=== PATIENT | female | born 1940 ===

== ENCOUNTER 2017-10-12 13:00 | Outpatient (RCR) | payer OTHER, MEDICAID ==
[~2017-10-12 13:00] MED LIST: AMBIEN5 MG PO; BENAZEPRIL HCL10 MG PO; DOCUSATE SODIU100 MG PO; SIMVASTATIN40 MG PO
== END 2017-10-15 | disposition home or self-care (01) ==
LOC: PTY 13:00
DX: Z96.642 Presence of left artificial hip joint (principal); Z96.653 Presence of artificial knee joint, bilateral
CPT/HCPCS: 97110; 97140; 97162; G0283

== ENCOUNTER 2017-11-06 13:00 | Outpatient (RCR) | payer OTHER, MEDICAID | END 2017-11-15 | disposition home or self-care (01) | LOC: PTY 13:00 | DX: Z96.642 Presence of left artificial hip joint (principal) | CPT/HCPCS: 97110; G0283 ==

== ENCOUNTER 2017-11-21 12:40 | Outpatient (RCR) | payer OTHER, MEDICAID | END 2017-12-13 | disposition home or self-care (01) | LOC: PTY 12:40 | DX: M25.552 Pain in left hip (principal); Z96.642 Presence of left artificial hip joint; Z96.641 Presence of right artificial hip joint; Z96.653 Presence of artificial knee joint, bilateral | CPT/HCPCS: 97110; 97140; G0283 ==

== ENCOUNTER 2017-12-19 12:00 | Outpatient (RCR) | payer OTHER, MEDICAID | END 2018-01-13 | disposition home or self-care (01) | LOC: PTY 12:00 | DX: Z96.642 Presence of left artificial hip joint (principal) | CPT/HCPCS: 97110; G0283 ==